=== PATIENT | male | born 1995 | race Caucasian/White ===

== ENCOUNTER → 2024-05-16 10:38 | Outpatient (CLI) | payer OTHER, SELFPAY ==
[2024-05-16 11:06] LABS: Cholesterol 190 mg/dL (140-199); HDL Cholesterol 69 mg/dL (40-60); LDL Cholesterol Calculated 109 mg/dL (<100); Triglycerides 61 mg/dL (35-150)
== END ==
PROVIDERS: PCP Family Medicine; Referring Provider Family Medicine; Visit Provider Family Medicine
DX: E78.49 Other hyperlipidemia (principal); Z13.220 Encounter for screening for lipoid disorders
CPT/HCPCS: 36415; 80061